=== PATIENT | female | born 1950 | race Caucasian/White ===

== ENCOUNTER 2020-09-20 11:41 | Inpatient (IN) ==
[~2020-09-20 11:41] MED LIST: Buffered Lidocaine 1% SYRIN 1 ml INTRADERM ONE; Lactated Ringers 1000 ml BAG 1,000 ML IV SCH; Lidocaine 2% PF 5 ML VIAL ONE; Propofol 10 MG/ML 20 ML BTL ONE
[2020-09-20] MEDS ORDERED: ceFAZolin 2 GM PREMIX 2 GM/50 ML BAG ONE (11:42)
[2020-09-20] MEDS ORDERED: Buffered Lidocaine 1% SYRIN 1 ml INTRADERM ONE (12:47)
[2020-09-20] MEDS ORDERED: Midazolam 2 mg/2 ml VIAL 1 mg/ml 2 ml VIAL (2 mg) ONE ×2 (12:53→13:41)
[2020-09-20] MEDS ORDERED: Dexamethasone IV 4 MG/ML VIAL 1 ml VIAL ONE (12:53)
[2020-09-20] MEDS ORDERED: ROPIVACAINE 5 MG/ML 30 ML BTL (0.5%) ONE (12:53)
[2020-09-20] MEDS ORDERED: fentaNYL 100 mcg/2 ml 50 MCG/ML VIAL ONE ×3 (13:41→18:33)
[2020-09-20] MEDS ORDERED: Propofol 10 MG/ML 20 ML BTL ONE (14:24)
[2020-09-20] MEDS ORDERED: Lidocaine 2% PF 5 ML VIAL ONE (14:28)
[2020-09-20] MEDS ORDERED: Ondansetron 4 mg VIAL 2 MG/ML 2 ml VIAL ONE (14:28)
[2020-09-20] MEDS ORDERED: Naloxone 0.4 mg VIAL 0.4 mg/ml 1 ml VIAL IV PRN (15:00)
[2020-09-20] MEDS ORDERED: diPHENhydraMINE IV 50 MG/ML 1 ml VIAL (BENADRYL) IV PRN ×2 (15:00→17:45)
[2020-09-20] MEDS ORDERED: diPHENhydraMINE 25 mg TAB PO PRN (17:45)
[2020-09-20] MEDS ORDERED: Ondansetron ODT 4 mg TAB 4 MG TAB PO PRN (17:45)
[2020-09-20] MEDS ORDERED: Lactulose 30 ml UDC PO PRN (17:45)
[2020-09-20] MEDS ORDERED: Morphine 2 MG/ML SYRINGE IV PRN (17:45)
[2020-09-20] MEDS ORDERED: Magnesium Hydroxide LIQ 30 ML UDC PO PRN (17:45)
[2020-09-20] MEDS ORDERED: Ondansetron 4 mg VIAL 2 MG/ML 2 ml VIAL IV PRN (17:45)
[2020-09-20] MEDS ORDERED: Prochlorperazine 5 mg/ml 2 ml VIAL (10 mg) IV PRN (17:52)
[2020-09-20] MEDS ORDERED: Dextrose 50% Syringe 50 ml 25 GM/50 ML SYRINGE IV PUSH PRN (17:55)
[2020-09-20] MEDS ORDERED: Lactated Ringers 1000 ml BAG 1,000 ML IV SCH (18:00)
[2020-09-20] MEDS: fentaNYL 100 mcg/2 ml 50 MCG/ML VIAL IV PRN ×4 (18:37→19:38)
[2020-09-20] MEDS: Magnesium Hydroxide LIQ 30 ML UDC PO SCH (21:39)
[2020-09-20] MEDS: Morphine ER 15 mg TAB ** extended release PO SCH (21:42)
[2020-09-20] MEDS: ceFAZolin 1 GM ADVAN 1 GM in NS 0.9% 50 ML 50 ML IVPB SCH (23:03)
[2020-09-21] MEDS: ceFAZolin 1 GM ADVAN 1 GM in NS 0.9% 50 ML 50 ML IVPB SCH ×2 (05:15→14:37)
[2020-09-21 05:46] LABS: Hematocrit 30 % (35-47); Mean Platelet Volume 7.9 fL (7.4-10.4); Platelet Count 286 10^3/uL (150-450)
[2020-09-21 06:30] LABS: BUN/Creatinine Ratio 21.5 (8-20); Calcium 8.2 mg/dL (8.6-10.3); EGFR African American 72.3 (>60); EGFR Non-African American 59.8 (>60); Potassium 4.4 mmol/L (3.5-5.0)
[2020-09-21] MEDS ORDERED: Vitamin THERAPEUTIC TAB PO SCH (09:00)
[2020-09-21] MEDS: Morphine ER 15 mg TAB ** extended release PO SCH (09:05)
[2020-09-21] MEDS: Magnesium Hydroxide LIQ 30 ML UDC PO SCH (09:07)
[2020-09-21 11:53] VITALS: BP 108/43
== END 2020-09-21 15:50 | disposition home health service (06) | DRG 489 ==
LOC: INTOOBSV 11:41 → OBSVTOIN 11:41 → AA 11:41 → SSU 19:51
PROVIDERS: ADMIT Orthopaedic Surgery Adult Reconstructive Orthopaedic Surgery; ATTEND Orthopaedic Surgery Adult Reconstructive Orthopaedic Surgery